=== PATIENT | female | born 1975 | race Two or more races ===

== ENCOUNTER 2016-09-10 17:33 | Emergency (ER) | payer SELFPAY ==
[~2016-09-10] VITALS: Ht 162.6 cm; Wt 73.9 kg
[2016-09-10 17:53] VITALS: BP 106/66
[2016-09-10] MEDS ORDERED: IBUP-1060 PO (18:33)
[2016-09-10] MEDS ORDERED: AMOX875T PO (18:33)
--- NOTE | 2016-09-10 18:33 | PHYS DOC ---
Past Medical History Past Medical History: No Pertinent History Past Surgical History: No Surgical History Alcohol Use: None Drug Use: None Adult General Chief Complaint Chief Complaint: SORE THROAT HPI HPI Patient is a 40 year old female who presents with a sore throat and bilateral ear pain for 2 days. Patient denies any coughing but states she's had a fever. Review of Systems Review of Systems Constitutional: See history of present illness Eyes: Denies change in visual acuity, redness, or eye pain [] HENT: sore throat, bilateral ear pain [] Respiratory: Denies cough or shortness of breath [] Cardiovascular: No additional information not addressed in HPI [] GI: Denies abdominal pain, nausea, vomiting, bloody stools or diarrhea [] : Denies dysuria or hematuria [] Musculoskeletal: Denies back pain or joint pain [] Integument: Denies rash or skin lesions [] Neurologic: Denies headache, focal weakness or sensory changes [] Endocrine: Denies polyuria or polydipsia [] Physical Exam Physical Exam Constitutional: Well developed, well nourished, no acute distress, non-toxic appearance. [] HENT: Normocephalic, atraumatic, bilateral external ears normal, oropharynx moist, no oral exudates, nose normal. [] Bilateral TM are mildly injected. +2 tonsils with mild erythema no exudate +2 anterior cervical adenopathy Eyes: PERRLA, EOMI, conjunctiva normal, no discharge. [] Neck: Normal range of motion, no tenderness, supple, no stridor. [] Cardiovascular:Heart rate regular rhythm, no murmur [] Lungs & Thorax: Bilateral breath sounds clear to auscultation [] Abdomen: Bowel sounds normal, soft, no tenderness, no masses, no pulsatile masses. [] Skin: Warm, dry, no erythema, no rash. [] Back: No tenderness, no CVA tenderness. [] Extremities: No tenderness, no cyanosis, no clubbing, ROM intact, no edema. [] Neurologic: Alert and oriented X 3, normal motor function, normal sensory function, no focal deficits noted. [] Psychologic: Affect normal, judgement normal, mood normal. [] Current Patient Data Vital Signs Vital Signs Date Time Temp Pulse Resp B/P (MAP) Pulse Ox O2 Delivery O2 Flow Rate FiO2 09/10/16 17:53 100.4 100 20 100 Room Air 100.4 EKG EKG [] Radiology/Procedures Radiology/Procedures [] Course & Med Decision Making Course & Med Decision Making Pertinent Labs and Imaging studies reviewed. (See chart for details) Patient has otitis media bilaterally and pharyngitis. Negative rapid strep. Discharged with amoxicillin for 10 days. Tylenol Motrin for pain or fever. Dragon Disclaimer Dragon Disclaimer This electronic medical record was generated, in whole or in part, using a voice recognition dictation system. Departure Departure Impression: Primary Impression: Otitis media Additional Impression: Acute pharyngitis Disposition: HOME, SELF-CARE Condition: STABLE Referrals: NO PCP (PCP) Follow-up with your doctor in 1-2 weeks Patient Instructions: Otitis Media, Adult, Viral and Bacterial Pharyngitis Additional Instructions: You were seen for otitis media and pharyngitis, please complete your antibiotics. Take Tylenol or Motrin for pain or fever. Scripts Ibuprofen (IBUPROFEN) 800 Mg Tablet 800 MG PO PRN Q6HRS Y for INFLAMMATION, #30 TAB Prov: DENZEL GARCIA APRN 09/10/16 Amoxicillin (AMOXICILLIN) 875 Mg Tablet 1 TAB PO BID, #20 TAB Prov: DENZEL GARCIA APRN 09/10/16 Problem Qualifiers Primary Impression: Otitis media Otitis media type: other nonsuppurative Chronicity: acute Laterality: bilateral Recurrence: not specified as recurrent Qualified Codes: H65.193 - Other acute nonsuppurative otitis media, bilateral Additional Impression: Acute pharyngitis Pharyngitis/tonsillitis etiology: unspecified etiology Qualified Codes: J02.9 - Acute pharyngitis, unspecified DENZEL GARCIA [employer]EL[employer] Sep 10, 2016 18:33
[2016-09-11 07:43] LABS: NEGATIVE OBC STREP NEG; POSITIVE OBC STREP POS
== END 2016-09-10 18:42 | disposition home or self-care (01) ==
LOC: ER 17:33
DX: H65.193 Other acute nonsuppurative otitis media, bilateral (principal); J02.9 Acute pharyngitis, unspecified
CPT/HCPCS: 87070; 87880; 99283

== ENCOUNTER → 2019-09-02 | Outpatient (CLI) | payer OTHER ==
[~2019-09-02] MED LIST: AMOX875T PO; IBUP-1060 PO
--- NOTE | 2019-09-02 08:48 | RAD ---
EXAM: Pelvic ultrasound HISTORY: Pelvic pain for 3 weeks. COMPARISON: None. FINDINGS: Sonographic evaluation of the pelvis was performed transabdominally and transvaginally. The uterus is anteverted and measures 9.0 x 4.6 x 4.5 cm. The endometrial stripe measures 4 mm. No masses are identified. There is no significant free fluid. A nabothian cyst is noted at the cervix. The right ovary measures 3.8 x 2.9 x 1.6 cm. It contains a hypoechoic nodule measuring 1.4 x 1.2 x 0.7 cm containing no internal flow. This is likely a complicated/hemorrhagic follicle. Ovarian Doppler flow is normal. The left ovary is not visualized currently. There are no suspicious lesions. IMPRESSION: 1. A 1.4 cm right ovarian nodule is likely a benign complicated follicle. Follow-up could be considered in 3 months if there is persistent concern. 2. The left ovary was obscured currently. Electronically signed by: Blanca Fernandez MD (09/02/2019 8:45 AM) [id number]
--- NOTE | 2019-09-02 17:26 | RAD ---
EXAM: BILATERAL DIGITAL SCREENING MAMMOGRAPHY. HISTORY: Routine mammographic screening. TECHNIQUE: Bilateral full field digital images were obtained in CC and MLO projections. Computer-aided detection was applied. COMPARISON: None available. This is interpreted as a baseline study. COMPOSITION: B. There are scattered areas of fibroglandular density. FINDINGS: There are no suspicious masses, microcalcifications or architectural distortion. The parenchymal pattern is stable. BI-RADS CATEGORY 1: Negative. RECOMMENDATION: 1. Routine screening mammography in one year. If mammography demonstrates dense breast tissue (heterogenously dense or extremely dense, category C or D), which could hide abnormalities, and if other risk factors for breast cancer have been identified, supplemental screening tests that may be suggested by the ordering physician may be of benefit. Dense breast tissue, in and of itself, is a relatively common condition. Therefore, this information is not provided to cause undue concern, but rather to raise awareness and to promote discussion with the referring physician regarding the presence of other risk factors, in addition to dense breast tissue. The results of this mammography examination is provided to the patient and referring physician. The patient should contact their referring physician if any questions or concerns exist regarding this report. PQRS compliance statement - Patient information was entered into a reminder system with a target due date for the next mammogram. "Our facility is accredited by the [employer] Mammography Program." Electronically signed by: Blanca Fernandez MD (09/02/2019 5:22 PM) [email or web address]
== END | disposition home or self-care (01) ==
LOC: US 07:41
PROVIDERS: ATTEND Nurse Practitioner
DX: Z12.31 Encounter for screening mammogram for malignant neoplasm of breast (principal); R10.2 Pelvic and perineal pain; N83.291 Other ovarian cyst, right side
CPT/HCPCS: 76830; 76856; 77067

== ENCOUNTER → 2020-06-06 | Outpatient (CLI) | payer OTHER ==
--- NOTE | 2020-06-06 14:49 | RAD ---
EXAMINATION: US PELVIS W/TV, 06/06/2020 2:02 PM CLINICAL INDICATION: Follow-up right ovarian cyst TECHNIQUE: Grayscale, color and spectral Doppler ultrasound images of the pelvis via transabdominal a nd transvaginal approach. COMPARISON: Right pelvic ultrasound 09/02/2019 FINDINGS: The uterus measures 8.4 x 5.5 x 3.7 cm. The endometrial stripe measures 1 mm in thickness. No myometr ial mass. 1.1 cm simple cyst in the cervix, likely nabothian cyst. The right ovary measures 2.1 x 1.3 x 1.5 cm. Normal right ovarian blood flow. The previously seen rig ht ovarian cyst has resolved. Left ovary is nonvisualized. No adnexal mass or free fluid. IMPRESSION: 1. Resolution of right ovarian cyst. No new abnormality. 2. The left ovary is not visualized. Electronically signed by: Cathy Sandy MD (06/06/2020 2:46 PM) [id number]
== END ==
LOC: US 14:00
PROVIDERS: ATTEND Nurse Practitioner
DX: N83.01 Follicular cyst of right ovary (principal)
CPT/HCPCS: 76830; 76856